=== PATIENT | female | born 1960 | race African-American/Black ===

== ENCOUNTER 2020-05-23 08:03 | Outpatient (CLI) | payer BC, SELFPAY ==
--- NOTE | ~2020-05-23 | MM_ITS ---
EXAMINATION: MM screening petra BI w wilmar HISTORY: Screening mammogram TECHNIQUE: Craniocaudal and mediolateral oblique 3-D tomosynthesis images were obtained and synthetic 2-D images were generated. CAD analysis was submitted and interpreted. COMPARISON: Comparison to multiple prior studies sequentially, with oldest reviewed study dated 01/24. BREAST PARENCHYMAL COMPOSITION: The breasts are heterogeneously dense, which may obscure small masses . FINDINGS: There is no evidence of suspicious mass, calcification, or architectural distortion to sugg est malignancy in either breast. There has been no suspicious interval change. IMPRESSION: 1. No mammographic evidence of malignancy. 2. Recommend routine screening mammography in one year. BI-RADS Category 1: Negative Reviewed, dictated and finalized at location A.
== END 2020-05-23 08:04 | disposition home or self-care (01) ==
DX: Z12.31 Encounter for screening mammogram for malignant neoplasm of breast (principal)
CPT/HCPCS: 77063; 77067

== ENCOUNTER 2021-06-04 17:19 | Outpatient (CLI) | payer BC, SELFPAY ==
--- NOTE | ~2021-06-04 | MM_ITS ---
EXAMINATION: MM screening petra BI w wilmar HISTORY: Screening TECHNIQUE: Craniocaudal and mediolateral oblique 3-D tomosynthesis images were obtained and synthetic 2-D images were generated. CAD analysis was submitted and interpreted. COMPARISON: Comparison to multiple prior studies sequentially, with oldest reviewed study dated 01/2015. BREAST PARENCHYMAL COMPOSITION: There are scattered areas of fibroglandular density. FINDINGS: There is no evidence of suspicious mass, calcification, or architectural distortion to sugg est malignancy in either breast. There has been no suspicious interval change. IMPRESSION: 1. No mammographic evidence of malignancy. 2. Recommend routine screening mammography in one year. BI-RADS Category 1: Negative Reviewed, dictated and finalized at location A.
== END 2021-06-04 17:20 | disposition home or self-care (01) ==
LOC: ANHIMG 17:25
DX: Z12.31 Encounter for screening mammogram for malignant neoplasm of breast (principal)
CPT/HCPCS: 77063; 77067

== ENCOUNTER 2022-03-12 23:13 | Emergency (ER) | payer BC, SELFPAY ==
--- NOTE | ~2022-03-12 | CT_ITS ---
EXAMINATION: CTA chest PE abdomen pel DATE: 03/13/2022 01:30 INDICATION: Shortness of breath and left flank pain TECHNIQUE: Computed tomography angiography (CTA) of the chest was performed with 100 mL Omnipaque-350 intravenous contrast timed to evaluate the pulmonary arteries. Subsequent postcontrast images of the abdomen and pelvis are obtained. Coronal maximum intensity projection 3D-reconstructions were create d by the technologist. The dose-length product (DLP) was 2144.28 mGy-cm. Automated exposure control a nd iterative reconstruction technique were employed. COMPARISON: None. FINDINGS: CTA CHEST: The pulmonary arteries are well-opacified. No pulmonary embolism is identified. Respirator y motion artifact limits evaluation in subsegmental branches of the lung bases. There is an 8 mm nodu le of the left upper lobe. There is a 7 mm nodule in the right lung apex. There is a 12 mm pleural-ba sed nodule in the medial left lower lobe. Trace pleural effusions are present. There is no pneumothor ax. There is atelectasis in the lower lobes and right middle lobe. Cardiomegaly is noted. No patholog ically enlarged thoracic lymph nodes are identified. ABDOMEN/PELVIS CT: The liver, spleen, pancreas, gallbladder, and adrenal glands are normal. Cysts of the kidneys measure up to 1.3 cm on the left. There is a 2 mm nonobstructing stone of the left kidney . No stones are identified in the ureters or bladder. There is no hydronephrosis or hydroureter. No p athologically enlarged abdominal or pelvic lymph nodes are identified. There is calcified atheroscler osis of the aorta and many of the other arteries. There is no free intraperitoneal gas or evidence of bowel obstruction. Colonic diverticulosis is present without evidence of diverticulitis. There is a midline supraumbilical hernia containing fat. An umbilical hernia containing fat is also noted. There is moderate lumbar spondylosis. IMPRESSION: 1. No pulmonary embolus identified, sensitivity somewhat limited in the lung bases due to respiratory motion. 2. Multifocal nodular opacities which could be infectious or inflammatory. Follow-up CT in three shanda hs after appropriate therapy is recommended 3. Nonobstructing left nephrolithiasis no CT correlate for left flank pain. 4. Umbilical and supraumbilical hernias containing fat. 5. Diverticulosis without evidence of diverticulitis. Reviewed, dictated and finalized at location A. IMPRESSION: 1. No pulmonary embolus identified, sensitivity somewhat limited in the lung ba ses due to respiratory motion. 2. Multifocal nodular opacities which could be infectious or inflammatory. Foll ow-up CT in three months after appropriate therapy is recommended 3. Nonobstructing left nephrolithiasis no CT correlate for left flank pain. 4. Umbilical and supraumbilical hernias containing fat. 5. Diverticulosis without evidence of diverticulitis.
--- NOTE | ~2022-03-12 | XR_ITS ---
EXAMINATION: XR chest 2V DATE: 03/13/2022 00:12 INDICATION: Shortness of breath TECHNIQUE: PA and lateral views of the chest are obtained. COMPARISON: 01/15/2011 FINDINGS: There are minimal airspace opacities of the lung bases. There is no pleural effusion or pne umothorax. The cardiomediastinal silhouette is normal. There is mild thoracic spondylosis. IMPRESSION: 1. Minimal airspace opacities of the lung bases, consistent with atelectasis versus pneumonia. Reviewed, dictated and finalized at location A. IMPRESSION: 1. Minimal airspace opacities of the lung bases, consistent with atelectasis ve rsus pneumonia.
--- NOTE | ~2022-03-12 | NM_ITS ---
EXAMINATION: NM pulmonary perfusion DATE: 03/13/2022 03:47 INDICATION: Shortness of breath TECHNIQUE: 3.01 mCi Tc-99m MAA was administered intravenously for perfusion images. Scintigraphic sasha ges of the chest were obtained. COMPARISON: CT from today FINDINGS: Perfusion images show a perfusion defect in the superior segment of the left lower lobe. No correspon ding pulmonary embolus is identified on the CTA pulmonary arteries. IMPRESSION: 1. Low probability for pulmonary embolism. Reviewed, dictated and finalized at location A.
[2022-03-12 23:16] VITALS: BP 127/83; PULSE 115; RESP 16; TEMP 36.1; O2SAT 95
--- NOTE | 2022-03-12 23:41 | ECG_ITS ---
Measurements Intervals [place] Rate: 118 P: 26 PA: 128 QRS: -4 QRSD: 77 T: 13 QT: 310 QTc: 435 Interpretive Statements SINUS TACHYCARDIA BORDERLINE R WAVE PROGRESSION, ANTERIOR LEADS ABNORMAL ECG Electronically Signed On 03-13-2022 6:38:24 CDT by Jose Bernardo D.O.
--- NOTE | 2022-03-12 23:50 | ED.GENADULT ---
HPI - General Adult General Chief complaint: Unspecified Stated complaint: Side Pain Time Seen by Provider: 03/12/22 23:22 Source: RN notes reviewed History of Present Illness HPI narrative: Patient presents emergency room from home for left flank pain. Patient states pain began yesterday afternoon while she had been sitting her desk the pain is located left lateral posterior flank and is described as sharp and stabbing is worse with deep inspiration and the patient feels that she cannot take a deep breath and feels short of breath she denies any trauma or injury she denies any fevers or chills chest pain cough abdominal pain nausea vomiting diarrhea or any other symptoms. She states she took ibuprofen approximately 2:00 today does not take any other pain medication Related Data Allergies Allergy/AdvReac Type Severity Reaction Status Date / Time acetaminophen Allergy Unknown VOMITING Verified 08/20/17 17:13 hydrocodone Allergy Unknown VOMIING Verified 08/20/17 17:13 Review of Systems Review of Systems: Gen.: Denies fevers or chills ENT: Denies congestion Respiratory: Reports shortness of breath denies cough CV: Denies chest pain or palpitations GI: Denies abdominal pain nausea, emesis or diarrhea reports left flank pain denies burning, urgency, frequency or hematuria Musculoskeletal: Denies back pain or muscle pain Neuro: Denies numbness, tingling, weakness or focal weakness Skin: Denies rash Except as documented, all other systems reviewed and negative [facility] Past Medical History Medical History (Updated 03/13/22 @ 07:01 by Oswald Bright DO) Patient denies significant medical history Social History Social History (Updated 03/13/22 @ 06:03 by Oswald Bright DO) Smoking status: Never smoker Exam Narrative: APPEARANCE: No acute distress, nontoxic, resting in bed EYES: EOMI HEENT: Normocephalic, atraumatic, OMM RESPIRATORY: No respiratory distress Clear to auscultation bilaterally with no rhonchi wheezing or rales. CARDIOVASCULAR: Regular rate and rhythm without murmurs rubs or gallops. ABDOMINAL: Soft, nontender, nondistended, no rebound or guarding tender palpation in left flank pain increased with deep inspiration no overlying rash no tenderness in left upper quadrant MUSCULOSKELETAl: Moves all extremities. No clubbing, cyanosis or edema. NEURO: Awake and alert. Following commands, speech normal, no focal deficits SKIN:: Warm, dry. No rashes lesions or abrasions PSYCHIATRIC: Normal affect/mood, Course Course Emergency Course: Patient initially was CT of the chest indeterminate and I called and discussed with the radiologist for stat read this time discussed with Adry VQ scan Discussed with for stat read following VQ scan again possibly indeterminate Cussed with Dr. Su for radiology when he arrived this morning after review of both the CTA and the VQ scan he feels that there is no evidence of pulmonary embolism he does question whether there could be a touch of pneumonia developing and will start patient on antibiotics Discussed with patient results of workup and diagnosis. Discussed need for follow-up with primary care, proper use of medication, and reasons to return to the emergency department. Patient understands and agrees to current treatment plan Vital Signs Vital signs: Vital Signs Temperature 97 F L 03/12/22 23:16 Pulse Rate 115 H 03/12/22 23:16 Respiratory Rate 16 03/12/22 23:16 Blood Pressure 127/83 03/12/22 23:16 Pulse Oximetry 95 03/12/22 23:16 Temperature 97 F L 03/12/22 23:16 Pulse Rate 84 03/13/22 06:46 Respiratory Rate 18 03/13/22 06:46 Blood Pressure 125/83 03/13/22 06:46 Pulse Oximetry 99 03/13/22 06:46 Medical Decision Making [facility] Narrative Medical decision making narrative: Patient presented for left flank pain minimally tender to palpation no direct trauma or injury patient's had no chest pain no cough no fever no abdominal pain naus
[2022-03-12] MEDS: SODIUM CHLORIDE 0.9% IV 1,000 ML 999 ML IV CONT (23:55)
[2022-03-13] VITALS (10 sets, daily range): BP systolic 102–138; BP diastolic 72–85; PULSE 83–92; RESP 18–20; O2SAT 96–99
[2022-03-13 00:03] LABS: Alanine Aminotransferase 44 U/L (6-35); Albumin Level 4.8 g/dL (3.5-5.1); Alkaline Phosphatase 137 U/L (38-126); Anion Gap 12 mmol/L (8-16); Aspartate Amino Transferase 41 U/L (14-36); Bilirubin,Total 0.4 mg/dL (0.2-1.3); Blood Urea Nitrogen 14 mg/dL (7-17); Carbon Dioxide 22 mmol/L (22-30); Chloride 102 mmol/L (98-107); Estimated CRCL calculation 75 ml/min; Estimated Glomerular Filt Rate > 60; Glucose 141 mg/dL (65-110); Lipase 27 U/L (23-300); Potassium 3.9 mmol/L (3.4-5.0); Sodium 136 mmol/L (137-145)
[2022-03-13 00:10] LABS: Basophils Percent Auto 0.3 % (0.2-1.2); Eosinophils Absolute Auto 0.1 K/mm3 (0-0.3); Eosinophils Percent Auto 1.1 % (0-4.4); Hematocrit 40.6 % (37.0-47.0); Immature Granulocyte Absolute 0.03 K/mm3 (0.00-0.031); Immature Granulocyte Percent A 0.4 % (0-0.5); Lymphocytes Absolute Auto 1.79 K/mm3 (0.9-3.2); Lymphocytes Percent Auto 24.1 % (18.3-44.2); Mean Corpuscular HGB Conc 34.5 g/dl (32-36); Mean Corpuscular Hemoglobin 30.8 pg (26-34); Mean Corpuscular Volume 89.2 fl (80-100); Mean Platelet Volume 10.1 fl (7.4-10.4); Monocytes Absolute Auto 1.2 K/mm3 (0.1-0.6); Monocytes Percent Auto 16.3 % (2.6-8.5); Neutrophils Absolute Auto 4.3 K/mm3 (1.3-6.7); Neutrophils Percent Auto 57.8 % (45.5-73.1); Platelet Count Result 308 k/mm3 (150-375); Red Blood Count 4.55 M/mm3 (4.2-5.4); Red Cell Distribution Width 13.6 % (11.5-14.5); White Blood Count 7.4 K/mm3 (4.5-10.0)
[2022-03-13 00:14] LABS: D Dimer 1.84 ug/mL (<0.48)
[2022-03-13 00:15] LABS: Troponin I < 0.012 ng/mL (0.000-0.034)
[2022-03-13 01:00] LABS: Appearance Urine Clear (Clear); Bilirubin Urine Negative (Negative); Blood Urine Negative (Negative); Color Urine Yellow (Yellow); Glucose Urine UA Negative (Negative); Ketones Urine Negative (Negative); Leukocyte Esterase Ur Negative LEU/UL (Negative); Nitrate Urine Negative (Negative); Protein Urine Negative (Negative); Specific Grav Ur 1.015 (1.001-1.035); Urobilinogen Urine 0.2 mg/dL (<2.0)
[2022-03-13 01:04] LABS: Bacteria Urine Trace /hpf; Mucus Urine Rare /lpf; RBC Urine 0-2 /hpf (0-2); Squamous Epithelial Cell Urine Few /hpf (Few); WBC Urine 0-3 /hpf
[2022-03-13 01:16] LABS: Add Urine Microscopic? NO
[2022-03-13] MEDS: KETOROLAC 30 MG/ML VIAL (*BKC) IV PUSH (02:28)
[2022-03-13] MEDS: AZITHROMYCIN 250 MG TABLET 500 MG PO (07:29)
== END 2022-03-13 07:40 | disposition home or self-care (01) ==
PROVIDERS: Emergency Provider Emergency Medicine
DX: J10.00 Influenza due to other identified influenza virus with unspecified type of pneumonia (principal); R09.1 Pleurisy; R00.0 Tachycardia, unspecified; N20.0 Calculus of kidney; K42.9 Umbilical hernia without obstruction or gangrene; K57.90 Diverticulosis of intestine, part unspecified, without perforation or abscess without bleeding
CPT/HCPCS: 36415; 71046; 71275; 74177; 78580; 80053; 81003; 83690; 84484; 85025; 85380; 93005; 96361; 96374; 99284; A9270; A9540; J1885; J7030; Q9967

== ENCOUNTER 2022-03-18 09:30 | Emergency (ER) | payer BC, SELFPAY ==
[2022-03-18] VITALS (10 sets, daily range): BP systolic 130–155; BP diastolic 66–95; PULSE 94–107; RESP 16–30; TEMP 36.3; O2SAT 94–100
--- NOTE | ~2022-03-18 | XR_ITS ---
EXAMINATION: XR chest 2V DATE: 03/18/2022 10:08 INDICATION: Left upper chest pain. Shortness of breath. TECHNIQUE: Frontal and lateral views of the chest were obtained. COMPARISON: Chest 2 views 03/12/2022, chest CT 03/13/2022 FINDINGS: Again seen is a nodule in left upper lobe. There are airspace opacities at left lung base. No pleural effusion or pneumothorax. The heart size is normal. IMPRESSION: 1. Nodule in left lung upper lobe and airspace opacities at left lung base with mild improvement, con sistent with pneumonia. Reviewed, dictated and finalized at location B. IMPRESSION: 1. Nodule in left lung upper lobe and airspace opacities at left lung base with mild improvement, consistent with pneumonia.
--- NOTE | ~2022-03-18 | CT_ITS ---
EXAMINATION: CTA chest PE protocol DATE: 03/18/2022 13:58 INDICATION: Left chest pain. Shortness of breath. TECHNIQUE: Computed tomography angiography (CTA) of the chest was performed with 100 mL Omnipaque-350 intravenous contrast timed to evaluate the pulmonary arteries. Coronal maximum intensity projection 3D-reconstructions were created by the technologist. Automated exposure control and iterative reconst ruction technique were employed. The dose-length product was 314.49 mGy-cm. COMPARISON: Chest CT 03/13/2022 FINDINGS: The lungs demonstrate mild atelectasis. There are subsegmental airspace and groundglass opa cities in the upper lobes. There are airspace and groundglass opacities in basilar left lower lobe. T hese findings are consistent with pneumonia. There is a small left pleural effusion. The heart size i s normal. No pericardial effusion. There is no pulmonary embolus. There is moderate thoracic spondylo sis and severe cervical spondylosis. IMPRESSION: 1. No pulmonary embolus. 2. Worsened pneumonia involving the upper lobes and left lower lobe. 3. Small left pleural effusion. Reviewed, dictated and finalized at location B.
--- NOTE | 2022-03-18 09:54 | ECG_ITS ---
Measurements Intervals [place] Rate: 106 P: 55 NV: 141 QRS: 5 QRSD: 77 T: 29 QT: 316 QTc: 420 Interpretive Statements SINUS TACHYCARDIA DELAYED PRECORDIAL R/S TRANSITION BASELINE WANDER- I, III ABNORMAL ECG Electronically Signed On 03-18-2022 10:19:02 CDT by Jose Bernardo D.O.
[2022-03-18 10:10] LABS: Basophils Percent Auto 0.3 % (0.2-1.2); Eosinophils Absolute Auto 0.1 K/mm3 (0-0.3); Eosinophils Percent Auto 1.5 % (0-4.4); Hematocrit 40.4 % (37.0-47.0); Hemoglobin 13.1 g/dL (12.0-15.0); Immature Granulocyte Absolute 0.02 K/mm3 (0.00-0.031); Immature Granulocyte Percent A 0.3 % (0-0.5); Lymphocytes Absolute Auto 0.99 K/mm3 (0.9-3.2); Lymphocytes Percent Auto 14.9 % (18.3-44.2); Mean Corpuscular HGB Conc 32.4 g/dl (32-36); Mean Corpuscular Volume 92.7 fl (80-100); Mean Platelet Volume 9.7 fl (7.4-10.4); Monocytes Absolute Auto 0.8 K/mm3 (0.1-0.6); Monocytes Percent Auto 11.6 % (2.6-8.5); Neutrophils Absolute Auto 4.7 K/mm3 (1.3-6.7); Neutrophils Percent Auto 71.4 % (45.5-73.1); Platelet Count Result 359 k/mm3 (150-375); Red Blood Count 4.36 M/mm3 (4.2-5.4); Red Cell Distribution Width 13.2 % (11.5-14.5); White Blood Count 6.6 K/mm3 (4.5-10.0)
[2022-03-18 10:23] LABS: INR 1.1; Prothrombin Time 13.9 Seconds (11.1-14.7)
[2022-03-18 10:24] LABS: Alanine Aminotransferase 53 U/L (6-35); Albumin Level 4.3 g/dL (3.5-5.1); Alkaline Phosphatase 139 U/L (38-126); Anion Gap 8 mmol/L (8-16); Aspartate Amino Transferase 38 U/L (14-36); Bilirubin,Total 0.4 mg/dL (0.2-1.3); Blood Urea Nitrogen 10 mg/dL (7-17); Calcium 9.1 mg/dL (8.4-10.2); Carbon Dioxide 28 mmol/L (22-30); Chloride 101 mmol/L (98-107); Estimated CRCL calculation 75 ml/min; Estimated Glomerular Filt Rate > 60; Glucose 192 mg/dL (65-110); Lipase 26 U/L (23-300); Partial Thromboplastin Time 38.9 SECONDS (22.3-36.8); Potassium 4.1 mmol/L (3.4-5.0); Sodium 137 mmol/L (137-145)
[2022-03-18 10:34] LABS: Troponin I < 0.012 ng/mL (0.000-0.034)
--- NOTE | 2022-03-18 12:38 | ED.ARRPALP ---
HPI - Arrhythmia/Palpitations General Chief Complaint: Unspecified Stated Complaint: left side pain (states was just seen here) Time Seen by Provider: 03/18/22 11:55 Source: patient Mode of arrival: ambulatory History of Present Illness HPI narrative: 61 y/o female presents to the ER today for ongoing problems with left chest and left rib pain. She has had this since 03/11/22. She was seen in our ER on 03/12. She was worked up for chest pain and PE and was found to be negative for PE but likely had some pneumonia starting. She reports that she has had cough that is productive and has thick mucous. She gets intermittent shortness of breath. No nausea, vomiting or diarrhea. No fever or chills. She has completed her z pack prescription but says that she does not feel any better at this point. She has not been tested for covid. Related Data Home Medications Medication Instructions Recorded Confirmed spironolactone 03/18/22 Allergies Allergy/AdvReac Type Severity Reaction Status Date / Time acetaminophen Allergy Unknown VOMITING Verified 03/18/22 13:13 hydrocodone Allergy Unknown VOMIING Verified 03/18/22 13:13 Review of Systems Constitutional: Constitutional: Denies chills, Reports fatigue and Denies fever(s) Eyes: Eyes: Reports no additional eye complaints ENT: Denies dizziness, Denies nasal congestion and Reports sore throat Cardiovascular: Cardiovascular: Reports chest pain, Denies rapid heart rate and Denies radiating jaw, neck or arm pain Respiratory: Respiratory: Denies chest congestion, Reports cough, Reports dyspnea and Denies wheezing Gastrointestinal: Gastrointestinal: Denies diarrhea, Denies nausea and Denies vomiting Genitourinary: Genitourinary: Reports no additional female genitourinary complaints Musculoskeletal: Musculoskeletal: Denies back pain, Denies myalgias and Denies arthralgias Integumentary/Breasts: Skin/Breast: Denies rash Neurologic: Denies headache(s) Psychiatric: Psychiatric: Denies anxiety Endocrine: Endocrine: Denies fatigue Hematologic/Lymphatic: Hematologic/Lymphatic: Reports no additional hematologic/lymphatic complaints Allergic/Immunologic: Allergic/Immunologic: Reports no additional allergic/immunologic complaints PMFSH Past Medical History Medical History Patient denies significant medical history Social History Social History Smoking status: Never smoker Exam Const: General: healthy appearing, no acute distress and alert Orientation/consciousness: patient oriented x3 HENMT: Head: normal to inspection Eyes: Conjunctivae: conjunctivae normal Neck: Neck: normal visual inspection Chest: Chest palpation & inspection: normal inspection of the chest Resp: Effort & Inspection: normal respiratory effort Auscultation: clear to auscultation bilaterally Cardio: Rate: regular rate Rhythm: regular rhythm GI: GI Palp: Yes Soft to palpation, No Tenderness to palpation present (GI) and No Guarding due to palpation present (GI) Auscultation: normal bowel sounds Skin: General skin exam: normal color Neuro: General: patient oriented x3, moves all extremities and no meningeal signs Extrem: General: normal to inspection Psych: Mental Status: mental status grossly normal Affect: normal affect Course Course Emergency Course: I have discussed all work up findings with the patient. She is covid positive. Her CT does not show PE but she does have pneumonia that is somewhat worse. She has not had dyspnea while in the ER nor has she been hypoxic. I will discharge patient to home and she has agreed to return if she has difficulty breathing. I am covering her with Levaquin antibiotic in case there is secondary infection causing the worsening pneumonia. Vital Signs Vital signs: Vital Signs Temperature 36.3 C L 03/18/22 09:51 Pulse Rate 107 H 03/18/22
[2022-03-18 13:01] LABS: D Dimer 3.89 ug/mL (<0.48)
[2022-03-18 13:43] LABS: Troponin I < 0.012 ng/mL (0.000-0.034)
[2022-03-18 13:54] LABS: SARS-CoV-2 RNA PCR Positive
[2022-03-18 15:04] LABS: CRP 5.1 mg/dL (<1.0); Lactate Dehydrogenase 754 U/L (313-618)
== END 2022-03-18 15:32 | disposition home or self-care (01) ==
PROVIDERS: Emergency Medicine; Emergency Provider Nurse Practitioner Family
DX: U07.1 COVID-19 (principal); J12.82 Pneumonia due to coronavirus disease 2019; R07.9 Chest pain, unspecified
CPT/HCPCS: 36415; 71046; 71275; 80053; 82728; 83615; 83690; 84484; 85025; 85380; 85610; 85730; 86140; 93005; 99284; C9803; Q9967; U0003; U0005

== ENCOUNTER 2022-05-27 00:05 | Day surgery (SDC) | payer BC, SELFPAY ==
[2022-05-13 10:48] VITALS: BMI 28.8
[2022-05-27 09:27] VITALS: BP 143/78; PULSE 92; RESP 18; TEMP 35.5; O2SAT 99; BMI 30.5
--- NOTE | 2022-05-27 09:38 | P.PNAN_ITS ---
Anes - Initial Pre Proc Eval Procedure: Operation Date: 05/27/22 10:30 Proposed Procedures p Screening Colonoscopy - Javan Andujar MD Date/Time: 05/27/22 09:38 Surgeon: Javan Andujar MD Pre Op Diagnosis: neoplasm screening Patient Data Age: 61 Gender: F Height: 1.73 m Weight: 91.1 kg Last Vital Signs Temp 35.5 C L 05/27/22 09:27 Pulse 92 05/27/22 09:27 Resp 18 05/27/22 09:27 BP 143/78 H 05/27/22 09:27 Pulse Ox 99 05/27/22 09:27 O2 Del Method Room Air 05/27/22 09:27 Allergies Allergy/AdvReac Type Severity Reaction Status Date / Time acetaminophen AdvReac Intermediate VOMITING Verified 05/27/22 09:23 hydrocodone AdvReac Intermediate VOMIING Verified 05/27/22 09:23 Home Medications Medication Instructions Recorded Confirmed Type spironolactone 100 mg tablet 100 mg PO DAILY 03/18/22 05/13/22 History calcium carbonate 600 mg calcium 600 mg PO DAILY 03/26/22 05/13/22 History (1,500 mg) tablet cholecalciferol (vitamin D3) 50 50 mcg PO DAILY 03/26/22 05/13/22 History mcg (2,000 unit) tablet sodium sul 1.479 gram-potas ch See Rx Instructions PO PER PKG DIR 04/03/22 05/13/22 Rx 0.188 gram-magnes sul 0.225 gram #24 tabs tablet (Sutab) ascorbic acid (vitamin C) 1,000 mg 2 g PO DAILY 05/13/22 05/13/22 History chewable tablet multivitamin with minerals-folic 2 tablet PO DAILY 05/13/22 05/13/22 History acid 200 mcg chewable tablet (Adult Multivitamin Gummies) zinc 50 mg tablet 50 mg PO DAILY 05/13/22 05/13/22 History Patient hx anesthesia problems: none Family hx anesthesia problems: none Results Review: All pre-operative results and documents have been reviewed as part of the pre- operative evaluation. [facility] Past Medical History Medical History COVID-19 Left lower lobe pulmonary nodule 12 mm on 03/12/2022 Left upper lobe pulmonary nodule 8 mm on 03/12/2022 Nodule of apex of right lung 7 mm on 03/12/2022 Patient denies significant medical history Social History Social History Smoking status: Never smoker Alcohol intake: current Substance use: never Substance use type: does not use Living arrangements: with family Spiritual care concerns: No Anes - Eval Final PreProcedure Day of Procedure 05/27/22 09:38 Patient weight: obese Heart: regular rate and rhythm Lungs: clear to auscultation Airway: Mallampati scale class II Last oral intake: >/= 8 hours ASA classification: II Emergent: no Anesthetic plan: proceed Anesthesia type and monitoring: general GIVS and standard monitoring Results Review: All pre-operative results and documents have been reviewed as part of the pre- operative evaluation. Informed Consent: The patient's anesthetic plan and its attendant risks and benefits were discussed with the patient/family/POA. Questions were solicited and answers provided to the satisfaction of the patient/family/POA.
[2022-05-27] MEDS: LACTATED RINGERS 1,000 ML 150 ML IV CONT (09:43)
--- NOTE | 2022-05-27 09:56 | PM.HPGS ---
History of Present Illness History of Present Illness Consent: Risks, benefits, and alternatives have been discussed and questions answered. Patient agrees to proceed with procedure. Chief complaint: neoplasm screening Narrative: Kayla Dickson is a 61 year old female here for screening colonoscopy, had one more than 10 years ago when had Salmonella. Review of Systems Constitutional: Constitutional: Denies headache(s) and Denies weakness Eyes: Eyes: Denies blurry vision ENT: Reports Normal hearing present, Denies headache(s) and Denies neck pain Cardiovascular: Cardiovascular: Denies chest pain and Denies dyspnea Respiratory: Respiratory: Denies dyspnea Gastrointestinal: Gastrointestinal: Reports no additional gastrointestinal complaints Genitourinary: Genitourinary: Denies dysuria Musculoskeletal: Musculoskeletal: Denies neck pain Integumentary/Breasts: Skin/Breast: Denies dry skin Neurologic: Reports Normal hearing present, Denies headache(s) and Denies weakness Psychiatric: Psychiatric: Denies anxiety Endocrine: Endocrine: Denies change in body appearance Hematologic/Lymphatic: Hematologic/Lymphatic: Denies easy bleeding Allergic/Immunologic: Allergic/Immunologic: Denies urticaria PMF Past Medical History Medical History COVID-19 Left lower lobe pulmonary nodule 12 mm on 03/12/2022 Left upper lobe pulmonary nodule 8 mm on 03/12/2022 Nodule of apex of right lung 7 mm on 03/12/2022 Patient denies significant medical history Social History Social History Smoking status: Never smoker Alcohol intake: current Substance use: never Substance use type: does not use Living arrangements: with family Spiritual care concerns: No Meds Home Medications and Allergies Home Medications Medication Instructions Recorded Confirmed Type spironolactone 100 mg tablet 100 mg PO DAILY 03/18/22 05/13/22 History calcium carbonate 600 mg calcium 600 mg PO DAILY 03/26/22 05/13/22 History (1,500 mg) tablet cholecalciferol (vitamin D3) 50 50 mcg PO DAILY 03/26/22 05/13/22 History mcg (2,000 unit) tablet sodium sul 1.479 gram-potas ch See Rx Instructions PO PER PKG DIR 04/03/22 05/13/22 Rx 0.188 gram-magnes sul 0.225 gram #24 tabs tablet (Sutab) ascorbic acid (vitamin C) 1,000 mg 2 g PO DAILY 05/13/22 05/13/22 History chewable tablet multivitamin with minerals-folic 2 tablet PO DAILY 05/13/22 05/13/22 History acid 200 mcg chewable tablet (Adult Multivitamin Gummies) zinc 50 mg tablet 50 mg PO DAILY 05/13/22 05/13/22 History Allergies Allergy/AdvReac Type Severity Reaction Status Date / Time acetaminophen AdvReac Intermediate VOMITING Verified 05/27/22 09:23 hydrocodone AdvReac Intermediate VOMIING Verified 05/27/22 09:23 Vital Signs Vital Signs - 24 hr 05/27/22 09:27 Temperature 96 F L Pulse Rate 92 Respiratory Rate 18 Blood Pressure 143/78 H Pulse Oximetry 99 Oxygen Delivery Room Air Exam Const: General: comfortable and no acute distress HENMT: General nose exam: Normal nares present Eyes: General: appearance normal, both eyes and all related structures Neck: Neck: no JVD Resp: Auscultation: clear to auscultation bilaterally Cardio: Rate: regular rate Rhythm: regular rhythm GI: Inspection: non-distended GI Palp: Yes Soft to palpation Skin: General skin exam: normal color Neuro: General: gait normal Speech: normal speech Extrem: General: normal to inspection Psych: Mental Status: mental status grossly normal Assessment and Plan Assessment and plan (1) Colon cancer screening: Code(s): Z12.11 - Encounter for screening for malignant neoplasm of colon Status: Acute Assessment and Plan: colonoscopy
[2022-05-27 10:13] VITALS: BP 107/57; PULSE 89; RESP 20; O2SAT 99
[2022-05-27 10:23] VITALS: BP 106/66; PULSE 76; RESP 14; O2SAT 98
[2022-05-27 10:33] VITALS: BP 118/72; PULSE 81; RESP 15; O2SAT 100
== END 2022-05-27 10:50 | disposition home or self-care (01) ==
PROVIDERS: Visit Provider Internal Medicine Gastroenterology
PROC: 0DJD8ZZ Inspection of Lower Intestinal Tract, Via Natural or Artificial Opening Endoscopic (ICD-10-PCS; CPT 45378; principal; 2022-05-27 10:30)
DX: Z12.11 Encounter for screening for malignant neoplasm of colon (principal); K57.30 Diverticulosis of large intestine without perforation or abscess without bleeding; K64.8 Other hemorrhoids; Z86.16 Personal history of COVID-19; R91.1 Solitary pulmonary nodule; E66.9 Obesity, unspecified; Z68.30 Body mass index [BMI] 30.0-30.9, adult
CPT/HCPCS: 45378; J2704; J7120

== ENCOUNTER 2022-07-16 08:40 | Outpatient (CLI) | payer BC, SELFPAY ==
--- NOTE | ~2022-07-16 | MM_ITS ---
EXAMINATION: MM screening petra BI w wilmar HISTORY: Screening mammogram TECHNIQUE: Craniocaudal and mediolateral oblique 3-D tomosynthesis images were obtained and synthetic 2-D images were generated. CAD analysis was submitted and interpreted. COMPARISON: 06/04/2021, 05/23/2020, 03/19/2019 bilateral screening mammogram examinations BREAST PARENCHYMAL COMPOSITION: There are scattered areas of fibroglandular density. FINDINGS: There is no evidence of suspicious mass, calcification, or architectural distortion to sugg est malignancy in either breast. There has been no suspicious interval change. IMPRESSION: 1. No mammographic evidence of malignancy. 2. Recommend routine screening mammography in one year. BI-RADS Category 1: Negative Reviewed, dictated and finalized at location A.
== END 2022-07-16 08:41 | disposition home or self-care (01) ==
PROVIDERS: PCP Family Medicine
DX: Z12.31 Encounter for screening mammogram for malignant neoplasm of breast (principal)
CPT/HCPCS: 77063; 77067

== ENCOUNTER → 2022-11-12 08:28 | Outpatient (CLI) | payer BC, SELFPAY ==
--- NOTE | ~2022-11-12 | XR_ITS ---
EXAMINATION: XR chest 2V DATE: 11/12/2022 08:42 INDICATION: Cough. TECHNIQUE: Frontal and lateral views of the chest were obtained. COMPARISON: Chest 2 views 03/18/2022, chest CT 03/18/2022 FINDINGS: There is no pneumonia, pleural effusion, or pneumothorax. The heart size is normal. IMPRESSION: 1. No acute cardiopulmonary disease. Reviewed, dictated and finalized at location A. K OPERATOR
== END ==
PROVIDERS: PCP Clinical Nurse Specialist; Visit Provider Clinical Nurse Specialist
DX: R05.9 Cough, unspecified (principal)
CPT/HCPCS: 71046

== ENCOUNTER 2022-12-29 09:46 | Outpatient (CLI) | payer BC, SELFPAY ==
--- NOTE | ~2022-12-29 | DEXA_ITS ---
Bone Density Report Name: SUSAN WHITE Age: 62 Sex: Female Ethnicity: Black Date of : 1960 Indication: postmenopausal; screening for osteoporosis; height loss; hysterectomy; Referring Provider: REMINGTON, PASTOR Alnaiz Study: Bone densitometry was performed. Exam Date: December 29, 2022 Accession number: [id number] Bone Density: Region BMD T-score Z-score Classification AP Spine(L1-L4) 0.998 -0.4 0.3 Normal Femoral Neck (Left) 0.814 -0.3 0.2 Normal Total Hip (Left) 0.898 -0.4 0.0 Normal Femoral Neck (Right) 0.783 -0.6 0.0 Normal Total Hip (Right) 0.907 -0.3 0.1 Normal Total Hip Mean 0.903 -0.4 0.1 Normal World Health Organization criteria for BMD impression classify patients as: Normal (T-score at or above -1.0), Osteopenia (T-score between -1.0 and -2.5), or Osteoporosis (T-score at or below -2.5). 10-year Fracture Risk: FRAX not reported because: All T-scores for Spine Total, Hip Total, Femoral Neck at or above -1.0 Clinical Information Provided by Patient: Has used the following medications: Vitamin D, Calcium Has the following medical conditions: Hysterectomy Patient maximum height was 69 Menopause Age: 45 No regular weight bearing exercise Does not regularly consume dairy products Onset of menses at age 12 Number of children 1 Impression: The patient has normal bone mass. Discussion: BONE DENSITY IS ABOVE THE MINIMUM DESIRABLE LEVEL AT ALL SKELETAL SITES TESTED. This patient?s bone mineral density is above the minimum desirable level (T-score -1.0 or better) at all sites measured. The patient should follow a healthful lifestyle (good nutrition with adequate calcium and vitamin D, and appropriate weight-bearing exercise). Follow-Up: Consider repeating this study in 5 years or sooner if there is some new clinical indication. Reported by: ELLIE on 12/29/2022 10:11:00 AM. Reviewed, dictated and finalized at location [facility]
== END 2022-12-29 09:47 | disposition home or self-care (01) ==
LOC: ANHIMG 09:49
PROVIDERS: PCP Clinical Nurse Specialist; Visit Provider Obstetrics & Gynecology
DX: Z13.820 Encounter for screening for osteoporosis (principal); Z78.0 Asymptomatic menopausal state
CPT/HCPCS: 77080

== ENCOUNTER 2024-01-22 15:55 | Outpatient (CLI) | payer BC, SELFPAY ==
[2024-01-22 17:32] LABS: Appearance Urine Clear (Clear); Bilirubin Urine Negative (Negative); Blood Urine Negative (Negative); Color Urine Dark Yellow (Yellow); Glucose Urine UA Negative (Negative); Ketones Urine Negative (Negative); Leukocyte Esterase Ur Negative LEU/UL (Negative); Nitrate Urine Negative (Negative); Protein Urine Negative (Negative); Specific Grav Ur 1.015 (1.001-1.035); Urobilinogen Urine 0.2 mg/dL (<2.0); pH Urine 6.5 (5.0-9.0)
[2024-01-22 17:39] LABS: Add Urine Microscopic? NO
[2024-01-22 18:44] LABS: Hemoglobin A1C 6.2 % (<5.7)
== END 2024-01-22 15:56 | disposition home or self-care (01) ==
LOC: ANHGOSHLAB 15:57
PROVIDERS: PCP Family Medicine; Visit Provider Family Medicine
DX: R73.9 Hyperglycemia, unspecified (principal); E55.9 Vitamin D deficiency, unspecified; R30.0 Dysuria
CPT/HCPCS: 36415; 81003; 82306; 83036

== ENCOUNTER 2024-07-29 08:37 | Outpatient (CLI) | payer BC, SELFPAY ==
[2024-07-29 14:53] LABS: Hemoglobin A1C 6.1 % (<5.7)
== END 2024-07-29 08:38 | disposition home or self-care (01) ==
LOC: ANHGOSHLAB 08:39
PROVIDERS: PCP Family Medicine; Visit Provider Family Medicine
DX: R73.9 Hyperglycemia, unspecified (principal)
CPT/HCPCS: 36415; 83036

== ENCOUNTER 2025-02-02 14:07 | Outpatient (CLI) | payer BC, SELFPAY ==
--- NOTE | ~2025-02-02 | MM_ITS ---
EXAMINATION: MM screening petra BI w wilmar HISTORY: Screening TECHNIQUE: Craniocaudal and mediolateral oblique 3-D tomosynthesis images were obtained and synthetic 2-D images were generated. CAD analysis was submitted and interpreted. COMPARISON: Comparison to multiple prior studies sequentially, with oldest reviewed study dated 02/28. BREAST PARENCHYMAL COMPOSITION: Not dense: There are scattered areas of fibroglandular density. FINDINGS: There is no evidence of suspicious mass, calcification, or architectural distortion to sugg est malignancy in either breast. There has been no suspicious interval change. IMPRESSION: 1. No mammographic evidence of malignancy. 2. Recommend routine screening mammography in one year. BI-RADS Category 1: Negative Reviewed, dictated and finalized at location A.
== END 2025-02-02 14:08 | disposition home or self-care (01) ==
PROVIDERS: PCP Family Medicine; Visit Provider Obstetrics & Gynecology
DX: Z12.31 Encounter for screening mammogram for malignant neoplasm of breast (principal)
CPT/HCPCS: 77063; 77067

== ENCOUNTER 2025-02-03 09:13 | Outpatient (CLI) | payer BC, SELFPAY ==
--- OUTSIDE RECORDS SUMMARY | 2025-02-03 09:18 | XMS_ITS | Referral Summary ---
Author Organization [facility] Address [address] [place] [address] Phone Care Team Providers Care Lieutenant Colonel Name Role Phone Karo Brand MD Primary Care Provid er Encounters Date Type Department Care Team Description 01/30/2025 11:15 AM CDT Office Visit [facility] at [address] [address] Jeannie Pardo MD Well woman exam (Primary Dx); GSI (genuine stress incontinence), female; Hot flashes 01/10/2025 Telephone [employer] [address], [place] [address] Jeannie Pardo MD Orders Follow Up (Screening Mammogram ) from Last 3 Months Allergies Active Allergy Reactions Criticality Noted Date Comments Acetaminophen Hydrocodone Medications spironolactone (ALDACTONE) 100 mg tablet take 1 tablet (100MG) by oral route every day 0 09/07/2012 Active zinc citrate, bulk, 100 % powder Take by mouth Active calcium carbonate-vitam in D3 1,500 mg (600 mg elemental)-400 unit tablet,chewable Take 1 tablet by mouth Active multivitamin tablet Take by mouth Active BIOTIN ORAL Take by mouth Natures [employer] ([employer]) Active Active Problems Problem Noted Date Diagnosed Date Hot flashes 10/19/2023 Overview (01/30/2025): We discussed the new medication with the risk and benefits We also discussed Effexor and catapress She will follow for now. Assessment & Plan (01/30/2025 11:42 AM CDT): Stable Assessment & Plan (10/19/2023 3:40 PM COAL HANDLER): We discussed the new medication with the risk and benefits We also discussed Effexor and catapress She will follow for now. Elevated serum protein level 10/19/2023 Assessment & Plan (10/19/2023 3:40 PM COAL HANDLER): To cmp if still elevated will send to pcp vs onc She has not seen pcp since prior to covid Well woman exam 11/24/2022 Overview (01/30/2025): bmd 2022-0.6 Lab: Pap:s/p hyst Labs with pcp Leda: scheduled 2024 Colonoscopy:2021- due in 2026 BMD:2022 Assessment & Plan (01/30/2025 11:43 AM CDT): Pap done. RTO 12m. I will send the results to the portal. If she has not heard in a week, to call the office. Assessment & Plan (10/19/2023 3:55 PM COAL HANDLER): Complete exam done. To routine labs Assessment & Plan (11/24/2022 1:35 PM COAL HANDLER): Due in Oct 2023 Subacute cough 11/24/2022 Assessment & Plan (10/19/2023 3:57 PM COAL HANDLER): resolved Assessment & Plan (11/24/2022 1:44 PM COAL HANDLER): She has had the start of a work up To try antihistamine/flonase or gerd med GSI (genuine stress incontinence), female 2022 Assessment & Plan (01/30/2025 11:42 AM CDT): stable Assessment & Plan (10/19/2023 3:56 PM COAL HANDLER): No more leaking Some urge Meds discussed Assessment & Plan (11/24/2022 1:45 PM COAL HANDLER): To treat her cough We discussed pads Hypertension 01/10/2015 Overview (02/04/2017): HYPERTENSION NOS Postherpetic neuralgia 01/10/2015 Overview (02/05/2017): PHN - Post-herpetic neuralgia Herpes zoster 12/19/2014 Overview (02/05/2017): Herpes zoster Immunizations Immunization Administration Dates Next Due Influenza, Unspecified 11/09/2017 Social History Tobacco Use Types Packs/Day Years Used Date Smoking Tobacco: Never Smokeless Tobacco: Never Tobacco Cessation:Counseling Given: Not Answered Alcohol Use Standard Drinks/Week Comments Yes 0 (1 standard drink = 0.6 oz pur e alcohol) Humiliation, Afraid, Rape, and Kick questionnair e Answer Date Recorded Within the last year, have y ou been afraid of your partner or ex-partner? No 01/30/2025 Within the last year, have y ou been humiliated or emotionally abused in other ways by your partner or ex-partner? No Within the last year, have y ou been kicked, hit, slapped, or otherwise physically hurt by your partner or ex-partner? No 01/30/2025 Within the last year, have y ou been raped or forced to have any kind of sexual activity by your partner or ex-partner? No 01/30/2025 AUDIT-C Answer Date Recorded Q1: How often do you have a drink containing alcohol? Never 11/24/2022 Q2: How many drinks containi ng alcohol do you have on a typical day when you are drinking? Patient does not drink Q3: How often do you have si x or more drinks on one occasion? Never 11/24/2022 PHQ-2 Answer Date Recorded PHQ-2 Total Score (If total score is 3 or more points, staff should administer the PHQ-9) 0 10/19/2023 Comments No Sex and Gender Information Value Date Recorded Sex Assigned at Not on file Legal Sex Female 2:27 PM COAL HANDLER Gender Identity Not on file Sexual Orientation Not on file Last Filed Vital Signs Vital Sign Reading Time Taken Comments Blood Pressure 128/78 01/30/2025 11:34 AM CDT Pulse 94 11/24/2022 1:21 PM COAL HANDLER Temperature 36.9 C (98.4 F) 03/08/2018 8:05 AM CDT Respiratory Rate 16 03/08/2018 8:05 AM CDT Oxygen Saturation 98% 03/08/2018 8:05 AM CDT Inhaled Oxygen Concentration - - Weight 86.2 kg (190 lb) 01/30/2025 11:34 AM CDT Height 172.7 cm (5' 8 ) 01/30/2025 11:34 AM CDT Body Mass Index 28.89 01/30/2025 11:34 AM CDT Plan of Treatment Not on file Procedures Procedure Name Priority Date/Time Associated Diagnosis Comments SCREENING MAMMOGRAM BILATERAL W COYR Schedule Routine, Read Routine (OP Routine) 07/28/2023 Encounter for screening mammogram for breast cancer from Last 3 Months or Most Recently Relevant to Health Maintenance Results * Screening Mammogram Bilateral W Cory (07/28/2023) Anatomical Region Laterality Modality Breast Bilateral Mammography Jeannie Pardo MD IMG MAMMO PROCEDURE S Final Result from Last 3 Months or Most Recently Relevant to Health Maintenance Insurance [employer] Care Teams Lieutenant Colonel Relationship Specialty Start Date End Date Karo Brand MD [facility] [facility] [address] [address] PCP - General 04/16/11
--- OUTSIDE RECORDS SUMMARY | 2025-02-03 09:18 | XMS_ITS | Clinical Summary ---
Author Organization [facility] Address [address] [place] [address] Care Team Providers Care Engineering And Operations Director Name Role Phone Josephine Chilel MD Unavailable [phone] Karo Brand MD Primary Care Provid er Source Comments [facility],non-owned Affiliates and Associated Physician Practices is amultiple site organization consisting of ambulatory clinics and hospital sitesin [place], [place], [place] and [place]. This disclosure is being madepursuant to the Care Everywhere program and may not contain all information available regarding this patient. Last updated 18.[facility] Allergies Active Allergy Reactions Criticality Noted Date Comments Acetaminophen Nausea and/or Vomiting Hydrocodone Nausea and/or Vomiting Hydrocodone-Acetaminophen 09/07/2012 Medications * Be aware that medications may not be up to date on this document. Alwaysverify current medications with the patient. Medication Sig Dispensed Refills Start Date End Date Status calcium carbonate-vitamin D 600-10 MG-MCG tablet Take 1 Tab by mouth. Active spironolactone (ALDACTONE) 100 MG tablet Take 100 mg by mouth once daily. Active Dermatological Products, Misc. (HYLATOPIC PLUS) CREA 99 02/14/2015 Act guy Probiotic Product (PROBIOTIC DAILY PO) Acti ve ULTRAVATE X, OINTMENT, 0.05 & 10 % APPLY TO AFFECTED AREA EVERY DAY NEEDED 2 11/04/2016 Active ULTRAVATE 0.05 % LOTN 12/17/2017 Act guy Multiple Vitamins-Minerals (WOMENS MULTI GUMMIES PO) Active ibuprofen (Motrin) 600 MG tablet 03/13/2022 Active ZINC CITRATE PO Active Ascorbic Acid (VITAMIN C ER PO) Active Active Problems Problem Noted Date Diagnosed Date Hypertension 01/10/2015 Overview (10/07/2022): HYPERTENSION NOS Herpes zoster 12/19/2014 Overview (10/07/2022): PHN - Post-herpetic neuralgia Herpes zoster Family History Medical History Relation Name Comments CAD (Coronary Artery Disease) Father Diabetes Father Cancer - Esophageal Maternal Aunt Cancer - Other Maternal Uncle Arthritis - Rheumatoid Mother Hypertension Mother Relation Name Status Comments Father Maternal Aunt Maternal Uncle Mother Alive Social History Tobacco Use Types Packs/Day Years Used Date Smoking Tobacco: Never Smokeless Tobacco: Never Tobacco Cessation:Counseling Given: Not Answered Alcohol Use Standard Drinks/Week Comments No 0 (1 standard drink = 0.6 oz pur e alcohol) Sex and Gender Information Value Date Recorded Sex Assigned at Not on file Gender Identity Not on file Sexual Orientation Not on file Last Filed Vital Signs Vital Sign Reading Time Taken Comments Blood Pressure 120/80 10/07/2022 9:14 AM SLATER APPRENTICE Pulse 77 11/28/2016 9:51 AM SLATER APPRENTICE Temperature - - Respiratory Rate - - Oxygen Saturation - - Inhaled Oxygen Concentration - - Weight 94.7 kg (208 lb 12.8 oz) 10/07/2022 9:14 AM SLATER APPRENTICE Height 172.7 cm (5' 8 ) 10/07/2022 9:14 AM SLATER APPRENTICE Body Mass Index 31.75 10/07/2022 9:14 AM SLATER APPRENTICE Plan of Treatment Health Maintenance Due Date Last Done Comments COLOGUARD (AGES 45-75) - COLON CA SCREENING 1960 COLON MONITORING 1960 COLONOSCOPY - COLON CA SCREENING 1960 CT COLONOGRAPHY - COLON CA SCREENING 1960 Colorectal Cancer Screening 1960 FIT - COLON CA SCREENING 1960 FLEX SIG - COLON CA SCREENING 1960 LIPID TESTING 1960 PAP SMEAR 1960 HIV SCREENING 1975 HEPATITIS C SCREENING 11/14/1978 DTAP/TDAP/TD VACCINES (1 - Tdap) 1979 PNEUMOCOCCAL VACCINE 50+ (1 of 1 - PCV) 2010 ZOSTER VACCINE (1 of 2) 2010 COVID-19 VACCINE (4 - season) 2024 04/18/2022, 09/20/2021, 01/08/2021 MAMMOGRAM 07/16/2024 07/16/2022, 05/03, 03/19/2019, Additional history exists DEPRESSION SCREENING 11/02/2024 INFLUENZA VACCINE (Season Ended) 2025 09/20/2021, 11/09/2017 Respiratory Syncytial Virus (RSV) Vaccine Pt: or over 60 yrs (1 - 1-dose 75+ series) 2035 HEPATITIS B VACCINE Aged Out No longe r eligible based on patient's age to complete this topic HIB VACCINE Aged Out No longer eligi ble based on patient's age to complete this topic HPV VACCINE Aged Out No longer eligi ble based on patient's age to complete this topic MENINGOCOCCAL (Group B) VACCINE SHARED DECISION-MAKING Aged Out No longer eligible based on patient's age to complete this topic MENINGOCOCCAL GROUPS A/C/Y/W VACCINE Aged Out No longer eligible based on patient's age to complete this topic PNEUMOCOCCAL VACCINE Aged Out No long er eligible based on patient's age to complete this topic Procedures Procedure Name Priority Date/Time Associated Diagnosis Comments MAMMOGRAM 07/16/2022 from Last 3 Months or Most Recently Relevant to Health Maintenance Results * MAMMOGRAM (07/16/2022) Anatomical Region Laterality Modality Other 07/16/2022 Narrative 07/16/2022 Ordered by an unspecified provider. Scanned Document SCANNING ONLY from Last 3 Months or Most Recently Relevant to Health Maintenance Care Teams Engineering And Operations Director Relationship Specialty [place] [address] [place], [place] [id number] PCP - General Internal Medicine 11/23/14 [place] [address] [place] [address] Veterinary Surgeon Obstetrics and Gynecology 11/23/14
--- OUTSIDE RECORDS SUMMARY | 2025-02-03 09:18 | XMS_ITS | Clinical Summary ---
Author Organization [facility] Address [address] [place] [address] Phone Care Team Providers Care Emt Basic Name Role Phone Karo Brand MD Primary Care Provid er Allergies Active Allergy Reactions Criticality Noted Date [...] Stable Assessment & Plan (10/19/2023 3:40 PM CORRECTIONAL CORPORAL): We discussed the new medication with the risk and benefits We also discussed Effexor and catapress She will follow for now. Elevated serum protein level 10/19/2023 Assessment & Plan (10/19/2023 3:40 PM CORRECTIONAL CORPORAL): To cmp if still elevated will send [...] office. Assessment & Plan (10/19/2023 3:55 PM CORRECTIONAL CORPORAL): Complete exam done. To routine labs Assessment & Plan (11/24/2022 1:35 PM CORRECTIONAL CORPORAL): Due in Oct 2023 Subacute cough 11/24/2022 Assessment & Plan (10/19/2023 3:57 PM CORRECTIONAL CORPORAL): resolved Assessment & Plan (11/24/2022 1:44 PM CORRECTIONAL CORPORAL): She has had the start of a work up To try antihistamine/flonase or gerd med GSI (genuine stress incontinence), female 2022 Assessment & Plan (01/30/2025 11:42 AM CDT): stable Assessment & Plan (10/19/2023 3:56 PM CORRECTIONAL CORPORAL): No more leaking Some urge Meds discussed Assessment & Plan (11/24/2022 1:45 PM CORRECTIONAL CORPORAL): To treat her cough We discussed pads Hypertension 01/10/2015 Overview (02/04/2017): HYPERTENSION NOS Postherpetic neuralgia 01/10/2015 Overview (02/05/2017): PHN - Post-herpetic neuralgia Herpes zoster 12/19/2014 Overview (02/05/2017): Herpes zoster Encounters Date Type Department Care Team Description 01/30/2025 11:15 AM CDT Office Visit [facility] Care at [address] [address] Jeannie Pardo MD Well woman exam (Primary Dx); GSI (genuine stress incontinence), female; Hot flashes 01/10/2025 Telephone [employer] [address] [place] [address] Jeannie Pardo MD Orders Follow Up (Screening Mammogram ) from Last 3 Months Immunizations Immunization Administration Dates Next Due Influenza, Unspecified 11/09/2017 Surgical History Surgery Date Site/Laterality Comments HYSTERECTOMY 11/02/2005 - 11/01/2006 still has ovaries APPENDECTOMY BUNIONECTOMY Medical History Medical History Date Comments Hx Other Medical Hysterctomy Hypertension Hypertension Family History Medical History Relation Name Comments Coronary artery disease Father Dania nary artery disease, premature; Cause of : Coronary artery disease, premature Diabetes type II Father Diabetes -T ype 2; Hypertension Mother Hypertension; Other Other Family history of Cancer -throat; Cancer Neg Hx no colon, breas t or sample room supervisor cancer no change cmt 01/30/25 Relation Name Status Comments Father Alive Mother Other Social History Tobacco Use Types Packs/Day Years [...] on file Legal Sex Female 2:27 PM CORRECTIONAL CORPORAL Gender Identity Not on file Sexual Orientation Not on file Obstetrics History Para Term AB IAB SAB Ectopic Multiple Livin g Live Births 2 1 1 1 1 Date Outcome GA Total Labor Labor/2nd/3rd Weight Sex Type Anes PTL Julianna A1 A5 Name Clin 7 Term 40w 0d 3.969 kg (8 lb 12 oz) M Vag-F orcep s None Living Complications:None Last Filed Vital Signs Vital Sign Reading Time Taken Comments Blood Pressure 128/78 01/30/2025 11:34 AM CDT Pulse 94 11/24/2022 1:21 PM CORRECTIONAL CORPORAL Temperature 36.9 C (98.4 F) 03/08/2018 8:05 AM CDT Respiratory Rate 16 03/08/2018 8:05 AM CDT Oxygen Saturation 98% 03/08/2018 8:05 AM CDT Inhaled Oxygen Concentration - - Weight 86.2 kg (190 lb) 01/30/2025 11:34 AM CDT Height 172.7 cm (5' 8 ) 01/30/2025 11:34 AM CDT Body Mass Index 28.89 01/30/2025 11:34 AM CDT Plan of Treatment Health Maintenance Due Date Last Done Comments Colon Cancer Screening-Colonoscopy 1960 Hepatitis C Screening 1960 DTaP/Tdap/Td Vaccine (1 - Tdap) 1971 Hepatitis B Screening 1978 Covid-19 Vaccine ( season) 2024 09/11/2022, 04/18/2022, 09/20/2021, Additional history exists Breast Cancer Screening-Mammogram 07/28/2024 07/28/2023, 05/23/2020, 03/19/2019, Additional history exists Depression Screening 10/19/2024 10/19/2023, 03/08/20 18 Influenza Vaccine (Season Ended) 2025 09/11/2022, 09/20/2021, 11/09/2017 Regular Well Visit/Exam 18-64 01/30/2026 01/30/2025, 10/19/2023, 03/08/2018 Zoster Vaccine Completed 09/11/2022, 04/18/2022 Pneumococcal vaccine <65 Aged Out No longer eligible based on patient's age to complete this topic Procedures Procedure Name Priority Date/Time Associated Diagnosis Comments SCREENING MAMMOGRAM BILATERAL W CORY Schedule Routine, Read Routine (OP Routine) 07/28/2023 Encounter for screening mammogram for breast cancer from Last 3 Months or Most Recently Relevant to Health Maintenance Results * Screening Mammogram Bilateral W Cory (07/28/2023) Anatomical Region Laterality Modality Breast Bilateral Mammography us Jeannie Pardo MD IMG MAMMO PROCEDURE S Final Result from Last 3 Months or Most Recently Relevant to Health Maintenance Insurance [employer] Member Subscriber Plan / Payer (Ef fective 2019-Present) Name:Kayla Dickson Relation to Subscriber:Self Name:Kayla Dickson Payer ID:[id number] (NAIC) Type: JENNIFER Address: [address] [place] [id number] [employer] Care Teams Emt Basic Relationship Specialty Start Date End Date Karo Brand MD [address] [facility] [address] [place] [id number] PCP - General 04/16/11
[2025-02-03 14:01] LABS: Basophils Percent Auto 0.7 % (0.2-1.2); Eosinophils Absolute Auto 0.2 K/mm3 (0-0.3); Eosinophils Percent Auto 3.8 % (0-4.4); Immature Granulocyte Absolute 0.01 K/mm3 (0.00-0.031); Immature Granulocyte Percent A 0.2 % (0-0.5); Lymphocytes Percent Auto 35.5 % (18.3-44.2); Mean Corpuscular HGB Conc 32.5 g/dl (32-36); Mean Corpuscular Hemoglobin 29.8 pg (26-34); Mean Corpuscular Volume 91.7 fl (80-100); Mean Platelet Volume 10.5 fl (7.4-10.4); Monocytes Absolute Auto 0.6 K/mm3 (0.1-0.6); Monocytes Percent Auto 15.1 % (2.6-8.5); Neutrophils Absolute Auto 1.9 K/mm3 (1.3-6.7); Neutrophils Percent Auto 44.7 % (45.5-73.1); Platelet Count Result 281 k/mm3 (150-375); Red Blood Count 4.36 M/mm3 (4.2-5.4); Red Cell Distribution Width 13.5 % (11.5-14.5); White Blood Count 4.2 K/mm3 (4.5-10.0)
[2025-02-03 14:39] LABS: Alanine Aminotransferase 29 U/L (6-35); Albumin Level 4.3 g/dL (3.5-5.1); Alkaline Phosphatase 90 U/L (38-126); Anion Gap 8 mmol/L (4-12); Aspartate Amino Transferase 95 U/L (14-36); Bilirubin,Total 0.5 mg/dL (0.2-1.3); Blood Urea Nitrogen 12 mg/dL (7-17); Calcium 9.2 mg/dL (8.4-10.2); Carbon Dioxide 32 mmol/L (22-30); Chloride 103 mmol/L (98-107); Cholesterol 195 mg/dL (0-200); Estimated Glomerular Filt Rate > 60; Glucose 85 mg/dL (65-110); HDL Direct 32 mg/dL; Potassium 4.5 mmol/L (3.4-5.0); Sodium 143 mmol/L (137-145); Triglycerides 109 mg/dL (<150)
[2025-02-03 14:50] LABS: LDL Cholesterol Direct 117 mg/dL
[2025-02-03 16:04] LABS: Vitamin D 25 Hydroxy 54.9 ng/mL
[2025-02-03 17:17] LABS: Hemoglobin A1C 6.2 % (<5.7)
== END 2025-02-03 09:14 | disposition home or self-care (01) ==
LOC: ANHGOSHLAB 09:14
PROVIDERS: PCP Family Medicine; Visit Provider Family Medicine
DX: R53.83 Other fatigue (principal); Z00.00 Encounter for general adult medical examination without abnormal findings; Z13.220 Encounter for screening for lipoid disorders; R73.03 Prediabetes; E55.9 Vitamin D deficiency, unspecified
CPT/HCPCS: 36415; 80053; 80061; 82306; 83036; 84443; 85025